=== PATIENT | male | born 1950 | race Caucasian/White ===

== ENCOUNTER → 2017-01-31 09:57 | Outpatient (CLI) | payer MEDICARE, MEDICAID ==
[2010-06-30 14:44] VITALS: BMI 29.9
== END | disposition home or self-care (01) ==
LOC: D.US 09:57
DX: K70.30 Alcoholic cirrhosis of liver without ascites (principal)

== ENCOUNTER → 2018-11-26 08:56 | Outpatient (CLI) | payer MEDICARE, MEDICAID ==
[2010-06-30 14:44] VITALS: BMI 29.9
== END | disposition home or self-care (01) ==
LOC: D.US 11-25 07:00
DX: K70.30 Alcoholic cirrhosis of liver without ascites (principal); Z98.890 Other specified postprocedural states

== ENCOUNTER → 2019-01-01 08:20 | Outpatient (CLI) | payer MEDICARE, MEDICAID ==
[2010-06-30 14:44] VITALS: BMI 29.9
[2019-01-01 09:04] LABS: ALBUMIN 3.8 g/dL (3.4-5.0); BILIRUBIN - DIRECT 0.16 mg/dL (0.00-0.30); BILIRUBIN - INDIRECT 0.79 mg/dL (0.00-1.00); BILIRUBIN - TOTAL 0.95 mg/dL (0.2-1.3); PROTEIN - SERUM 7.8 g/dL (6.4-8.2)
== END | disposition home or self-care (01) ==
LOC: D.US 12-31 09:00 → D.LAB 08:20 → D.US 09:00
PROVIDERS: ATTEND Internal Medicine Gastroenterology
DX: K74.60 Unspecified cirrhosis of liver (principal)

== ENCOUNTER → 2019-06-05 08:29 | Outpatient (CLI) | payer MEDICARE, MEDICAID ==
[2010-06-30 14:44] VITALS: BMI 29.9
[~2019-06-05 08:29] MED LIST: ACETAMINOPHEN500 M1; CHRONULAC30 ML PO; MIRALAX17 GM PO; [UNRECOGNIZED DRUG - OTHER]
[2019-07-09 11:37] VITALS: BMI 31.4
== END | disposition home or self-care (01) ==
LOC: D.US 08:29
PROVIDERS: ATTEND Specialist
DX: K70.30 Alcoholic cirrhosis of liver without ascites (principal)

== ENCOUNTER 2019-07-09 09:46 | Outpatient (CLI) | payer MEDICARE, MEDICAID ==
[~2019-07-09] VITALS: Ht 180.3 cm; Wt 102.3 kg
--- NOTE | ~2019-07-09 | HEMODYNAMI ---
PATIENT:LUIS FELIPE GARCIA MEDICAL RECORD: [id number] : 54 LOCATION:[facility] ADMISSION DATE: 07/09/19 Generatedon:07/09/201914:09 Patient name: LUIS FELIPE GARCIA Patient #: [id number] SSN: : 1950 Date of study: 07/09/2019 Page: Of Hemodynamic Procedure Report Patient Data Patient Demographics Procedure consent was obtained First Name: LUIS FELIPE Gender: Male Last Name: JOSE : 1950 [facility] Initial: BRENDA Age: 68 year(s) Patient #: [id number] Race: Unknown Additional ID: [id number] Contact details Address: [address] [place] [address] [facility] [place]: [place] [facility] [place]: [address] Past Medical History Allergies Allergen Reaction Date Comments Reported Other allergy 07/09/2019 demerol, tylenol Admission Admission Data Admission Date: 07/09/2019 Admission Time: 9:46 Procedure Procedure Types Cath Procedure Peripheral Cath Diagnostic Procedure Liver TIPSS Revision Procedure Description Procedure Date Procedure Date: 07/09/2019 Procedure Start Time: 13:29 Procedure End Time: 14:07 Procedure Staff Name Function Skip James MD Performing Physician NICHOLAS BLAND RT Monitor Gogo Brumfield RN Nurse Cynthia De Jesus RN Nurse Gabriel Rankin RT Scrub Valentino Jackson CRNA Additional personnel Procedure Data Cath Procedure Fluoroscopy Diagnostic fluoroscopy Total fluoroscopy Time: 4.6 time: 4.6 min min Diagnostic fluoroscopy Total fluoroscopy dose: 524 dose: 524 mGy mGy Contrast Material Contrast Material Type Amount (ml) Isovue 300 55 Entry Location Entry Primary Successful Side Size Upsize Upsize Entry Closure Succes sful Closure Location (Fr) 1 (Fr) 2 (Fr) Remarks Device Remarks Jugular Right 10 Fr vein Diagnostic catheters Device Type Used For End Catheter Placement Merit UHF Pigtail VESSEL SIZING 5Fr 65CM catheter ([id number]) Procedure Medications Medication Administration Route Dosage Heparin Flush Bag added to field 3 bags (1000units/500ml NS) Lidocaine 1% added to field 20 Hemodynamics Rest Heart Rate: 50 (bpm) Pressure Samples Time Site Value (mmHg) Purpose Heart Use Rate(bpm) 13:40 Portal (8) Snapshot 54 13:51 Portal 18/15(16) Snapshot 53 13:53 RA 15/(13) Snapshot 54 13:54 RA 15/14(13) Snapshot 55 Snapshots Pre Cath Intra NCS Post Cath Vital Signs Time Heart Resp etCO2 NIBP Rhythm Pain Sedation Rate (ipm) (mmHg) (mmHg) Status Level (bpm) 12:58:23 49 13 0 No Cuff NSR 0 (11) 10(A) , No pain 13:02:23 48 14 0 No Cuff NSR 0 (11) 10(A) , No pain 13:06:23 56 23 0 No Cuff NSR 0 (11) 10(A) , No pain 13:10:23 74 16 0 No Cuff NSR 0 (11) 10(A) , No pain 13:14:22 57 9 0 No Cuff NSR 0 (11) 10(A) , No pain 13:18:22 53 11 0 No Cuff NSR 0 (11) 10(A) , No pain 13:22:22 53 10 0 No Cuff NSR 0 (11) 10(A) , No pain 13:26:21 50 11 0 No Cuff NSR 0 (11) 10(A) , No pain 13:30:21 51 9 0 No Cuff NSR 0 (11) 10(A) , No pain 13:34:20 53 10 0 No Cuff NSR 0 (11) 10(A) , No pain 13:38:20 53 9 0 No Cuff NSR 0 (11) 10(A) , No pain 13:42:19 56 0 No Cuff NSR 0 (11) 10(A) , No pain 13:46:19 65 9 0 No Cuff NSR 0 (11) 10(A) , No pain 13:50:19 51 11 0 No Cuff NSR 0 (11) 10(A) , No pain 13:54:19 54 9 0 No Cuff NSR 0 (11) 10(A) , No pain 13:58:18 88 13 0 No Cuff NSR 0 (11) 10(A) , No pain 14:02:18 64 14 0 No Cuff NSR 0 (11) 10(A) , No pain 14:06:17 69 16 0 No Cuff NSR 0 (11) 10(A) , No pain Medications Time Medication Route Dose Verified Delivered Reason Notes Effe ctiveness by by 13:18:05 Heparin Flush added 3 Skip Valdivia used for Bag to bags James James procedure (1000units/500ml field MD LANZA NS) 13:18:18 Lidocaine 1% added 20ml Skip Valdivia for local to vial James James anesthetic field MD LANZA Procedure Log Time Note 12:15:41 Use device set IR Diagnostic 12:15:42 ACIST Syringe (20831) opened to sterile field. 12:15:43 ACIST Hand Control (62829) opened to sterile field. 12:15:43 ACIST Manifold (76012) opened to sterile field. 12:15:44 Bag Decanter (2001S) opened to sterile field. 12:15:45 Sterile Angiographic Pack opened to sterile field. 12:15:45 Tegaderm 4 x 4 (1626W) opened to sterile field. 12:16:32 KIT, TRANSJUGULAR LIVER ACCESS R opened to sterile field. 12:16:32 TUBING Contrast Injection High Pressure (STB652M) opened to sterile field. 12:16:33 TUBING Contrast Injection High Pressure (CBU773M) opened to sterile field. 12:16:33 PERCUTANEOUS ENTRY 19GA needle opened to sterile field. 12:16:34 Hewitt 180 wire (I99190) opened to sterile field. 12:37:04 - 12:57:04 Gabriel Rankin RT (R) (CV) sent for patient. Start room use. 12:57:05 Time tracking: Regular hours (M-F 7:00 - 5:00) 12:57:10 Plan of Care:Hemodynamics will remain stable., Cardiac rhythm will remain stable., Comfort level will be maintained., Respiratory function will remain adequate., Patient/ family verbilizes understanding of procedure., Procedure tolerated without complication., Recovers from procedure without complications.. 12:57:25 Patient received from Outpatients to IR Alert and oriented. Tansferred to table in Supine position. 12:57:28 Signed procedure consent form obtained from patient. 12:57:29 Warm blankets applied, and angela hugger turned on for patient comfort. 12:57:30 Correct patient and procedure confirmed by team. 12:57:31 ECG and BP/O2 sat monitors applied to patient. 12:57:33 Vital chart was started 12:57:34 Baseline sample Acquired. 12:57:36 Full Disclosure recording started 12:57:38 - 12:57:47 H&P Date Dictated: 07/09/2019 H&P Addendum completed by physician on day of procedure. (MUST COMPLETE FOR ALL OUTPATIENTS). 12:57:49 Pre-procedure instructions explained to patient. 12:57:49 Pre-op teaching completed and patient verbalized understanding. 12:57:54 Family in patients room. 12:58:11 Patient allergic to Other allergydemerol, tylenol 12:58:13 Is the patient allergic to Iodine/contrast media? No. 12:58:33 Is patient on blood thinner?No 12:58:35 Patient diabetic? No. 12:58:36 - 12:58:38 ---- see anethesia note for Pre-sedation anesthesia assessment.---- 12:59:04 - 13:00:28 IV patent on arrival in left forearm with Lactated Ringers at O. 13:03:06 Right Internal jugular was prepped with chlora-prep and draped in sterile fashion. 13:03:15 Alarms reviewed by Veronica Esposito 13:03:16 Sharps counted by scrub and verified by Madina 13:03:17 - 13:18:05 Heparin Flush Bag (1000units/500ml NS) 3 bags added to field was administered by Skip James MD; used for procedure; 13:18:18 Lidocaine 1% 20ml vial added to field was administered by Skip James MD; for local anesthetic; 13:26:27 Physician arrived 13:27:01 --------ALL STOP TIME OUT------ 13:27:02 Final Timeout: patient, procedure, and site verified with staff and physician. All members of the team are in agreement. 13:27:07 Right neck site verified by team. 13:27:23 Fire Safety Assessment: A--An alcohol-based skin anteseptic being used preoperatively., C--Open oxygen or nitrous oxide is being used. 13:27:28 2) 60-89 Mildly reduced kidney function, and other findings (as for stage 1) point to kidney disease. 13:27:51 Valentino Jackson CRNA present and monitoring patient for TIVA. 13:27:55 - 13:28:42 Procedure started. 13:29:21 Local anesthetic to right IJ vein with Lidocaine 1% by Skip James MD.INITIAL ACCESS ONLY 13:33:16 Razia VALENTINOF Pigtail VESSEL SIZING 5Fr 65CM catheter ([id number]) was advanced over the wire . 13:36:07 ROADRUNNER .035 260 glide wire (E28410) opened to sterile field. 13:38:46 A 10 Fr sheath was inserted into the Right Jugular vein 13:38:56 A 5 FrFr Pigtail catheter was inserted over the wire. 13:39:58 Zero performed for pressure channel P1 13:47:25 Inflate balloon Inflation number: 1 A Evercross 10 x 40 x 135 Balloon ([id number]) was prepped and advanced across the Undefined1 , then inflated. 13:48:29 Inflation number: 2 The Evercross 10 x 40 x 135 Balloon ([id number]) was reinflated across the Undefined1. 13:53:05 Zero performed for pressure channel P1 13:56:52 Procedure ended.(Physican Out) 13:57:35 Fluoroscopy time 04.60 minutes. 13:58:04 Contrast amount:Isovue 300 55ml. 13:58:07 Flurop Dose total: 524 13:58:07 Fluoroscopy dose: 524 mGy 13:58:19 Post-op/insertion site Right Jugular vein dressed using a 4 x 4 and Tegaderm. 13:59:43 Post procedure instruction explained to patient.Patient verbalizes understanding. 13:59:45 Procedure and supply charges have been captured, reviewed, submitted an d are correct. 14:07:18 Vital chart was stopped 14:07:24 Patient transfered to Recovery Room with Stretcher. 14:07:28 Procedure ended. 14:07:28 Full Disclosure recording stopped Intervention Summary Intervention Notes Time ActionType Lesion and Equipment Used Action# Pressure Duration Attributes 13:47:25 Inflate Undefined1 Evercross 10 x 1 0 00:00 balloon 40 x 135 Balloon ([id number]) 13:48:29 Reinflate Undefined1 Evercross 10 x 2 0 00:00 balloon 40 x 135 Balloon ([id number]) Device Usage Item Name Manufacture Quantity Catalog Number Hospital Part Current M inimal Lot# / Charge Number Stock Stock Serial# Code ACIST Syringe Acist 1 87949 [id number] 347195 108376 2 0 (61066) She[employer] ACIST Hand Acist 1 97369 464355 421972 927673 5 Control (65486) [employer] ACIST Manifold Acist 1 27824 556623 743626 938975 5 (99958) [employer] Bag Decanter Microtek 1 2001S 566864 03098 234900 5 (2001S) Medical Inc. Sterile Cardinal 1 [id number] 942912 237180 5 Angiographic Health Pack Tegaderm 4 x 4 3M 1 1626W 972100 932304 886282 5 (1626W) KIT, [employer] 1 E76882 374656 700025 5 [id number] TRANSJUGULAR LIVER ACCESS R TUBING Contrast Merit 2 [id number] 232328 176881 810746 5 Injection High Medical Pressure ([id number]) PERCUTANEOUS [employer] 1 P91239 022129 905617 5 [id number] ENTRY 19GA needle Hewitt 180 wire [employer] 1 R92951 416178 317045 4292577 5 [id number] ([id number]) Merit UHF Merit 1 [id number] 808030 419556 5 Pigtail VESSEL Medical SIZING 5Fr 65CM catheter ([id number]) ROADRUNNER .035 [employer] 1 M03441 689998 158381 207416 5 [id number] 260 glide wire (I72022) Evercross 10 x Medtronic 1 [id number] 533267 953325 962824 5 40 x 135 Balloon ([id number]) Signature Audit [place] Stage Time Signature Unsigned Intra-Procedure 07/09/2019 NICHLOAS BLAND RT 2:09:06 PM (R) Signatures Performing Physician : Signature : Skip James MD Date : Time : Monitor : NICHOLAS BLAND RT Signature : Date : Time : Nurse : Gogo Brumfield RN Signature : Date : Time : Nurse : Cynthia Neal RN Signature : Date : Time : [address] [place] [address]
[2019-07-09 10:14] LABS: HEMATOCRIT 41.3 % (42.0-54.0); HEMOGLOBIN 14.3 g/dL (13.5-17.5); LYMPHOCYTES 25.9 % (15-50); MCH 31.2 pg (26.0-34.0); MCHC 34.6 g/dL (31.0-37.0); MCV 90.2 fL (80.0-100.0); MEAN PLATELET VOLUME 12.1 fL (7.4-10.4); NEUTROPHILS 63.3 % (40-80); RBC 4.58 10x6/uL (4.20-6.10); RDW 13.3 % (11.5-14.5); WBC 5.8 10x3/uL (4.8-10.8)
[2019-07-09 10:16] LABS: PLATELET COUNT 86 10x3/uL (130-400)
[2019-07-09 10:23] LABS: ANION GAP 12.2 mmol/L (8-16); CALCIUM 8.8 mg/dL (8.5-10.1); CARBON DIOXIDE 29.3 mmol/L (21.0-32.0); CREATININE - SERUM 1.1 mg/dL (0.6-1.3); POTASSIUM - SERUM 4.5 mmol/L (3.5-5.1)
[2019-07-09 10:27] LABS: APTT 31.1 SECONDS (22.8-39.4); INR 1.33 (0.85-1.17); PROTIME 15.9 SECONDS (11.6-15.0)
[2019-07-09] MEDS ORDERED: CHRONULAC30 ML PO (10:47)
[2019-07-09] MEDS ORDERED: ACETAMINOPHEN500 M1 (10:48)
[2019-07-09] MEDS ORDERED: MIRALAX17 GM PO (10:48)
[2019-07-09] MEDS ORDERED: [UNRECOGNIZED DRUG - OTHER] (10:50)
[2019-07-09 11:37] VITALS: BP 102/65; Ht 180.3 cm; Wt 102.3 kg
[2019-07-09 12:22] LABS: PLATELET ESTIMATE DECREASED
--- NOTE | 2019-07-09 15:54 | NUR ---
1036 SEE POST PROCEDURE CHECKLIST FOR VITAL SIGN TRENDS
--- NOTE | 2019-07-09 15:55 | NUR ---
1515 YANE WAN RN ROUNDS. HOB ELEVATED 30 DEGREES 1520 REG AHA DIET SERVED. 1525 ICE CAP TO NECK. 1545 ATE 100%
== END 2019-07-09 17:05 | disposition home or self-care (01) ==
LOC: D.SP 09:46 → D.RAD 13:00 → D.SP 13:00
PROVIDERS: ATTEND Specialist
DX: K70.30 Alcoholic cirrhosis of liver without ascites (principal)

== ENCOUNTER → 2020-02-26 09:00 | Outpatient (CLI) | payer MEDICARE, MEDICAID ==
[2019-07-09 11:37] VITALS: BMI 31.4
== END | disposition home or self-care (01) ==
LOC: D.US 09:00
PROVIDERS: ATTEND Specialist
DX: K74.60 Unspecified cirrhosis of liver (principal); Z98.890 Other specified postprocedural states

== ENCOUNTER → 2021-04-20 09:17 | Outpatient (CLI) | payer MEDICARE, MEDICAID ==
[2019-07-09 11:37] VITALS: BMI 31.4
== END | disposition home or self-care (01) ==
LOC: D.US 09:17
PROVIDERS: ATTEND Internal Medicine Nephrology
DX: K70.30 Alcoholic cirrhosis of liver without ascites (principal)